=== PATIENT | female | born 1995 | race Caucasian/White ===

== ENCOUNTER 2021-06-30 13:46 | Emergency (ER) | payer MEDICAID, OTHER ==
[~2021-06-30] VITALS: Ht 170.2 cm; Wt 73.0 kg
[2021-06-30 13:56] VITALS: BP 134/96
[2021-06-30] MEDS ORDERED: CYCLOBENZAPRINE 10MG TABLET PO ONE (15:30)
[2021-06-30] MEDS ORDERED: ACETAMINOPHEN 325MG TABLET PO ONE (15:30)
[2021-06-30] MEDS ORDERED: IBUP-2030 MT (17:02)
[2021-06-30] MEDS ORDERED: CYCL10TA7 MT (17:02)
== END 2021-06-30 18:09 | disposition home or self-care (01) ==
LOC: ER 13:46
DX: S16.1XXA Strain of muscle, fascia and tendon at neck level, initial encounter (principal); S20.219A Contusion of unspecified front wall of thorax, initial encounter; V49.59XA Passenger injured in collision with other motor vehicles in traffic accident, initial encounter; Y93.89 Activity, other specified; Y92.89 Other specified places as the place of occurrence of the external cause; Y99.8 Other external cause status
CPT/HCPCS: 36415; 71045; 81025; 84484; 99284